=== PATIENT | male | born 1955 | race Caucasian/White ===

== ENCOUNTER 2020-01-17 11:48 | Day surgery (SDC) | payer OTHER ==
[~2020-01-17] VITALS: Ht 185.4 cm; Wt 123.1 kg
[~2020-01-17 11:48] MED LIST: ALEVE220 MG PO; AMLO5 PO; SILDENAFIL CIT100 MG PO
== END 2020-01-17 15:07 | disposition home or self-care (01) ==
LOC: ORSCSDS 11:48
PROVIDERS: Surgery
PROC: 0WUF0JZ Supplement Abdominal Wall with Synthetic Substitute, Open Approach (ICD-10-PCS; principal; 2020-01-17 13:00)
DX: K42.0 Umbilical hernia with obstruction, without gangrene (principal); I10 Essential (primary) hypertension; Z79.899 Other long term (current) drug therapy; E66.9 Obesity, unspecified; Z68.35 Body mass index [BMI] 35.0-35.9, adult
CPT/HCPCS: C1781; J0690; J1100; J1885; J2250; J2405; J2704; J2710; J3010; J7120

== ENCOUNTER 2020-02-07 08:50 | Day surgery (SDC) | payer OTHER ==
[~2020-02-07] VITALS: Ht 185.4 cm; Wt 123.4 kg
[~2020-02-07 08:50] MED LIST changes: +LISINOPRIL-HCT1 EAC1 PO
== END 2020-02-07 11:00 | disposition home or self-care (01) ==
LOC: ORSCSDS 08:50
PROVIDERS: Orthopaedic Surgery
PROC: 01N54ZZ Release Median Nerve, Percutaneous Endoscopic Approach (ICD-10-PCS; principal; 2020-02-07 10:00)
DX: G56.03 Carpal tunnel syndrome, bilateral upper limbs (principal); I10 Essential (primary) hypertension; E78.5 Hyperlipidemia, unspecified; E66.9 Obesity, unspecified; Z68.36 Body mass index [BMI] 36.0-36.9, adult; Z79.899 Other long term (current) drug therapy
CPT/HCPCS: J2250; J3010

== ENCOUNTER 2022-02-16 12:18 | Day surgery (SDC) | payer OTHER ==
[~2022-02-16] VITALS: Ht 188 cm; Wt 124.5 kg
[2022-02-16] MEDS ORDERED: PANT20 (12:57)
== END 2022-02-16 14:45 | disposition home or self-care (01) ==
LOC: ORSCSDS 12:18
DX: K92.1 Melena (principal); Z80.0 Family history of malignant neoplasm of digestive organs; K21.9 Gastro-esophageal reflux disease without esophagitis; R13.0 Aphagia; D12.2 Benign neoplasm of ascending colon; D12.3 Benign neoplasm of transverse colon; K29.70 Gastritis, unspecified, without bleeding; K64.8 Other hemorrhoids; I10 Essential (primary) hypertension; Z79.899 Other long term (current) drug therapy; Z87.891 Personal history of nicotine dependence
CPT/HCPCS: 88305; 88342; J0330; J0461; J2405; J2704; J7120; Q9968